=== PATIENT | male | born 1990 | race Caucasian/White ===

== ENCOUNTER 2020-07-21 22:09 | Emergency (ER) | payer SELFPAY ==
[~2020-07-21] VITALS: Ht 165.1 cm; Wt 84.0 kg
[2020-07-21] MEDS ORDERED: KETOROLAC 30MG/ML VIAL IV STA (23:05)
[2020-07-21] MEDS ORDERED: SODIUM CHLORIDE 0.9% 1,000 ML IV ONE (23:15)
[2020-07-21 23:28] LABS: CHLORIDE 106 mEq/L (98-107)
[2020-07-21 23:29] LABS: BASOPHILS % 0.3 % (0.0-2.0); EOSINOPHILS % 1.7 % (0.0-5.0); HEMATOCRIT. 44.6 % (42.0-52.0); HEMOGLOBIN. 14.9 g/dL (14.0-18.0); LYMPHOCYTES % 41.4 % (20.0-50.0); MEAN CORPUSCULAR HEMOGLOBIN 29.3 pg (28.0-32.0); MEAN CORPUSCULAR VOLUME 87.6 fL (80.0-94.0); MEAN PLATELET VOLUME 7.4 fl (7.4-10.4); MONOCYTES % 9.1 % (2.0-8.0); NEUTROPHILS % 47.5 % (40.0-76.0); PLATELET 290 x1000/uL (130-400); RED BLOOD CELL COUNT 5.09 mill/uL (4.7-6.1); RED CELL DISTRIBUTION WIDTH 12.9 % (11.6-14.6)
[2020-07-22 04:25] VITALS: BP 118/69
== END 2020-07-22 04:29 | disposition home or self-care (01) ==
LOC: ER 22:09
DX: R07.89 Other chest pain (principal); F17.210 Nicotine dependence, cigarettes, uncomplicated
CPT/HCPCS: 36415; 71045; 80053; 83880; 84484; 85025; 93005; 96361; 96374; 99285; J1885; J7030

== ENCOUNTER 2020-08-04 15:30 | Emergency (ER) | payer MEDICAID ==
[~2020-08-04] VITALS: Ht 165.1 cm; Wt 82.0 kg
[2020-08-04] MEDS ORDERED: ONDANSETRON HCL 4MG/2ML INJ IV STA (15:56)
[2020-08-04] MEDS ORDERED: SODIUM CHLORIDE 0.9% 1,000 ML IV ONE ×2 (16:00→16:15)
[2020-08-04] MEDS ORDERED: KETOROLAC 30MG/ML VIAL IV STA (16:01)
[2020-08-04 16:09] VITALS: BP 97/65
[2020-08-04 16:15] LABS: BASOPHILS % 0.4 % (0.0-2.0); EOSINOPHILS % 3.2 % (0.0-5.0); HEMATOCRIT. 40.5 % (42.0-52.0); HEMOGLOBIN. 14.2 g/dL (14.0-18.0); LYMPHOCYTES % 27.1 % (20.0-50.0); MEAN CORPUSCULAR HEMOGLOBIN 30.1 pg (28.0-32.0); MEAN CORPUSCULAR VOLUME 85.9 fL (80.0-94.0); MEAN PLATELET VOLUME 7.3 fl (7.4-10.4); MONOCYTES % 5.1 % (2.0-8.0); NEUTROPHILS % 64.2 % (40.0-76.0); PLATELET 292 x1000/uL (130-400); RED BLOOD CELL COUNT 4.72 mill/uL (4.7-6.1); RED CELL DISTRIBUTION WIDTH 12.8 % (11.6-14.6)
[2020-08-04 16:21] LABS: CHLORIDE 106 mEq/L (98-107)
[2020-08-04 16:25] LABS: ETHANOL BLOOD < 10 mg/dL; PROTHROMBIN TIME 11.2 sec (9.6-11.0)
[2020-08-04 17:24] LABS: CLARITY URINE CLEAR (CLEAR); COLOR URINE YELLOW (YELLOW); KETONES URINE NEGATIVE (NEGATIVE); LEUKOCYTE ESTERASE URINE NEGATIVE (NEGATIVE); NITRITE URINE NEGATIVE (NEGATIVE); OCCULT BLOOD URINE NEGATIVE (NEGATIVE); PH URINE 7.5 (4.5-8.0); PROTEIN URINE NEGATIVE (NEGATIVE); SPECIFIC GRAVITY URINE 1.009 (1.005-1.030)
[2020-08-04 17:39] LABS: *BENZODIAZEPINES SCREEN URINE NEGATIVE (NEGATIVE); *COCAINE SCREEN URINE NEGATIVE (NEGATIVE); METHADONE URINE SCREEN NEGATIVE (NEGATIVE)
[2020-08-04 17:40] LABS: *AMPHETAMINES SCREEN URINE NEGATIVE (NEGATIVE); *BARBITURATES SCREEN URINE NEGATIVE (NEGATIVE); CANNABINOID URINE SCREEN NEGATIVE (NEGATIVE); OPIATES URINE SCREEN NEGATIVE (NEGATIVE); PHENCYCLIDINE URINE SCREEN NEGATIVE (NEGATIVE)
[2020-08-04] MEDS ORDERED: ONDA4TAB5 MT (18:24)
[2020-08-04] MEDS ORDERED: POLY17PO3 MT (18:24)
[2020-08-04] MEDS ORDERED: OMEP20CA14 MT (18:24)
== END 2020-08-04 18:39 | disposition home or self-care (01) ==
LOC: ER 15:30
DX: R10.13 Epigastric pain (principal); R11.0 Nausea; K59.00 Constipation, unspecified; K82.8 Other specified diseases of gallbladder; K76.0 Fatty (change of) liver, not elsewhere classified; F17.210 Nicotine dependence, cigarettes, uncomplicated; Z71.6 Tobacco abuse counseling
CPT/HCPCS: 36415; 76705; 80053; 80305; 80320; 81003; 83690; 85025; 85610; 96361; 96374; 96375; 99285; 99406; J1885; J2405; J7030; G0480

== ENCOUNTER 2021-01-20 16:45 | Inpatient (IN) | payer MEDICAID ==
[~2021-01-20] VITALS: Ht 165.1 cm; Wt 86.6 kg
[~2021-01-20 16:45] MED LIST: OMEP20CA14 MT; ONDA4TAB5 MT; POLY17PO3 MT
[2021-01-20] MEDS ORDERED: NITROGLYCERIN 0.4MG TABLET SL SL ONE (18:00)
[2021-01-20] MEDS ORDERED: ASPIRIN 325MG EC TABLET PO ONE (18:00)
[2021-01-20 18:55] LABS: BASOPHILS % 0.5 % (0.0-2.0); HEMATOCRIT. 42.4 % (42.0-52.0); HEMOGLOBIN. 14.8 g/dL (14.0-18.0); MEAN CORPUSCULAR HEMOGLOBIN 30.1 pg (28.0-32.0); MEAN CORPUSCULAR VOLUME 86.5 fL (80.0-94.0); MEAN PLATELET VOLUME 7.2 fl (7.4-10.4); MONOCYTES % 7.5 % (2.0-8.0); PLATELET 286 x1000/uL (130-400); RED CELL DISTRIBUTION WIDTH 12.8 % (11.6-14.6)
[2021-01-20 19:00] LABS: CHLORIDE 104 mEq/L (98-107)
[2021-01-20] MEDS ORDERED: MAGNESIUM/ALUMINUM HYDROXIDE/SIMETHICONE 30ML UDC PO PRN (23:00)
[2021-01-20] MEDS ORDERED: IPRATROPIUM/ALBUTEROL 0.5-3(2.5)MG/3ML NEB NEB PRN (23:00)
[2021-01-20] MEDS ORDERED: ZOLPIDEM TARTRATE 5MG TABLET PO PRN (23:00)
[2021-01-20] MEDS ORDERED: NA PHOS,M-B/NA PHOS,DI-BA ENEMA 118ML PR PRN (23:00)
[2021-01-20] MEDS ORDERED: CLONIDINE 0.1MG TABLET PO PRN (23:00)
[2021-01-20] MEDS ORDERED: DOCUSATE SODIUM 100MG CAPSULE PO PRN (23:00)
[2021-01-20] MEDS ORDERED: KETOROLAC 15MG/ML VIAL IV PRN (23:00)
[2021-01-20] MEDS ORDERED: GUAIFENESIN 200MG/10ML SUGAR FREE UDC PO PRN (23:00)
[2021-01-20] MEDS ORDERED: ACETAMINOPHEN 325MG TABLET PO PRN ×2 (23:00)
[2021-01-20] MEDS ORDERED: ONDANSETRON HCL 4MG/2ML INJ IV PRN (23:00)
[2021-01-20] MEDS ORDERED: NITROGLYCERIN 0.4MG TABLET SL SL PRN (23:00)
[2021-01-21 00:15] LABS: ETHANOL BLOOD < 10 mg/dL
[2021-01-21 00:18] LABS: LDL CHOLESTEROL 139 mg/dL (5-100)
[2021-01-21 00:20] LABS: HDL CHOLESTEROL 27 mg/dL (40-59)
[2021-01-21 05:08] LABS: BASOPHILS % 0.4 % (0.0-2.0); EOSINOPHILS % 1.9 % (0.0-5.0); HEMATOCRIT. 43.7 % (42.0-52.0); HEMOGLOBIN. 14.7 g/dL (14.0-18.0); LYMPHOCYTES % 41.5 % (20.0-50.0); MEAN CORPUSCULAR HEMOGLOBIN 29.4 pg (28.0-32.0); MEAN CORPUSCULAR VOLUME 87.1 fL (80.0-94.0); MEAN PLATELET VOLUME 7.3 fl (7.4-10.4); MONOCYTES % 6.6 % (2.0-8.0); NEUTROPHILS % 49.6 % (40.0-76.0); PLATELET 286 x1000/uL (130-400); RED BLOOD CELL COUNT 5.01 mill/uL (4.7-6.1); RED CELL DISTRIBUTION WIDTH 12.9 % (11.6-14.6)
[2021-01-21 05:15] LABS: CHLORIDE 107 mEq/L (98-107)
[2021-01-21 05:21] LABS: PHOSPHORUS 4.2 mg/dL (2.5-4.9)
[2021-01-21 05:24] LABS: CREATINE KINASE 103 IU/L (39-308)
[2021-01-21 05:26] LABS: CREATINE KINASE MB FRACTION < 1.0 ng/mL (0.5-3.6)
[2021-01-21 08:00] VITALS: BP 137/80
[2021-01-21 09:00] VITALS: BP 137/80
[2021-01-21] MEDS ORDERED: FAMOTIDINE 20MG TABLET PO SCH (09:00)
[2021-01-21] MEDS ORDERED: ASPIRIN 81MG EC TABLET PO SCH (09:00)
[2021-01-21] MEDS ORDERED: ASPIRIN 325MG EC TABLET PO SCH (09:00)
[2021-01-21] MEDS ORDERED: METOPROLOL TARTRATE 25MG TABLET PO SCH (09:00)
[2021-01-21] MEDS ORDERED: ENOXAPARIN 40MG/0.4ML SYR SUBCUT SCH (09:00)
[2021-01-21] MEDS ORDERED: ATROPINE SULFATE 1MG/10ML SYR IV PRN (09:30)
[2021-01-21] MEDS ORDERED: ACETAMINOPHEN 325MG TABLET PO PRN (09:30)
[2021-01-21] MEDS: SUCRALFATE 1 G/10 ML UDC PO SCH ×2 (09:59→12:40)
[2021-01-21 12:00] VITALS: BP 107/70
[2021-01-21] MEDS ORDERED: INFLUENZA VACCINE 05/PF 0.5 ML SYRINGE IM ONE (13:30)
[2021-01-21 16:22] LABS: CREATINE KINASE 112 IU/L (39-308)
[2021-01-21 16:24] LABS: CREATINE KINASE MB FRACTION < 1.0 ng/mL (0.5-3.6)
== END 2021-01-21 16:30 | disposition left against medical advice (07) | DRG 243 ==
LOC: ER 16:45 → MICUSO 18:35 → EDBEDREQTM 18:37 → EDBEDREQ 18:37 → 8WST 01-21 07:20
PROVIDERS: ADMIT Internal Medicine; ATTEND Internal Medicine
DX: K21.9 Gastro-esophageal reflux disease without esophagitis (principal); E66.9 Obesity, unspecified; E78.5 Hyperlipidemia, unspecified; Z20.822 Contact with and (suspected) exposure to COVID-19; F17.210 Nicotine dependence, cigarettes, uncomplicated; Z68.31 Body mass index [BMI] 31.0-31.9, adult
CPT/HCPCS: 36415; 71045; 80053; 80061; 80320; 82550; 82553; 83036; 83735; 83880; 84100; 84484; 85025; 87426; 90686; 93005; 93306; 99285; J1650; G0480

== ENCOUNTER 2021-01-25 17:12 | Emergency (ER) | payer MEDICAID ==
[~2021-01-25] VITALS: Ht 167.6 cm; Wt 88.1 kg
[2021-01-25] MEDS ORDERED: KETOROLAC 15MG/ML VIAL IV ONE (18:45)
[2021-01-25] MEDS ORDERED: ACETAMINOPHEN 325MG TABLET PO ONE (18:45)
[2021-01-25 18:52] LABS: CHLORIDE 105 mEq/L (98-107)
[2021-01-25 18:59] LABS: BASOPHILS % 0.5 % (0.0-2.0); EOSINOPHILS % 2.3 % (0.0-5.0); HEMATOCRIT. 43.1 % (42.0-52.0); HEMOGLOBIN. 14.8 g/dL (14.0-18.0); LYMPHOCYTES % 39.2 % (20.0-50.0); MEAN CORPUSCULAR HEMOGLOBIN 29.8 pg (28.0-32.0); MEAN CORPUSCULAR VOLUME 86.8 fL (80.0-94.0); MEAN PLATELET VOLUME 7.2 fl (7.4-10.4); MONOCYTES % 9.5 % (2.0-8.0); NEUTROPHILS % 48.5 % (40.0-76.0); PLATELET 296 x1000/uL (130-400); RED BLOOD CELL COUNT 4.97 mill/uL (4.7-6.1); RED CELL DISTRIBUTION WIDTH 12.8 % (11.6-14.6)
[2021-01-25 19:23] VITALS: BP 112/66
== END 2021-01-25 19:23 | disposition home or self-care (01) ==
LOC: ER 17:12
DX: R07.89 Other chest pain (principal)
CPT/HCPCS: 36415; 71045; 80053; 84484; 85025; 93005; 96374; 99285; J1885

== ENCOUNTER 2021-01-27 11:05 | Inpatient (IN) | payer MEDICAID, OTHER ==
[~2021-01-27] VITALS: Ht 165.1 cm; Wt 86.2 kg
[2021-01-27] MEDS ORDERED: ASPIRIN 81MG TABLET PO ONE (11:30)
[2021-01-27] MEDS ORDERED: NITROGLYCERIN OINT 1GM/INCH UDPKT TD ONE (11:30)
[2021-01-27 12:14] LABS: BASOPHILS % 0.5 % (0.0-2.0); HEMATOCRIT. 40.6 % (42.0-52.0); HEMOGLOBIN. 14.4 g/dL (14.0-18.0); LYMPHOCYTES % 43.3 % (20.0-50.0); MEAN CORPUSCULAR HEMOGLOBIN 30.3 pg (28.0-32.0); MEAN CORPUSCULAR VOLUME 85.7 fL (80.0-94.0); MEAN PLATELET VOLUME 7.3 fl (7.4-10.4); MONOCYTES % 6.8 % (2.0-8.0); NEUTROPHILS % 47.4 % (40.0-76.0); PLATELET 263 x1000/uL (130-400); RED BLOOD CELL COUNT 4.74 mill/uL (4.7-6.1); RED CELL DISTRIBUTION WIDTH 12.9 % (11.6-14.6)
[2021-01-27 12:20] LABS: CHLORIDE 106 mEq/L (98-107)
[2021-01-27 12:23] LABS: PROTHROMBIN TIME 10.6 sec (9.6-11.0)
[2021-01-27] MEDS ORDERED: MAGNESIUM/ALUMINUM HYDROXIDE/SIMETHICONE 30ML UDC PO PRN (16:30)
[2021-01-27] MEDS ORDERED: HYDROCODONE/ACETAMINOPHEN 5/325MG TABLET PO PRN (16:30)
[2021-01-27] MEDS ORDERED: NALOXONE HCL 0.4MG/ML VIAL IV PRN (16:30)
[2021-01-27] MEDS ORDERED: ACETAMINOPHEN 325MG TABLET PO PRN (16:30)
[2021-01-27] MEDS ORDERED: ONDANSETRON HCL 4MG/2ML INJ IV PRN (16:30)
[2021-01-27] MEDS ORDERED: CLONIDINE 0.1MG TABLET PO PRN (16:30)
[2021-01-27 16:44] VITALS: BP 115/76
[2021-01-27 16:45] VITALS: BP 115/76
[2021-01-27] MEDS: METOPROLOL TARTRATE 25MG TABLET PO SCH ×2 (17:21→21:00)
[2021-01-27 19:58] VITALS: BP 104/61
[2021-01-27] MEDS: ATORVASTATIN CALCIUM 40MG TABLET PO SCH (21:09)
[2021-01-28] VITALS: BP 110/65
[2021-01-28 04:00] VITALS: BP 102/63
[2021-01-28] MEDS: ASPIRIN 81MG EC TABLET PO SCH (08:03)
[2021-01-28] MEDS: METOPROLOL TARTRATE 25MG TABLET PO SCH ×2 (08:04→20:28)
[2021-01-28] MEDS ORDERED: MIDAZOLAM HCL 2 MG/2 ML VIAL ONE (08:07)
[2021-01-28] MEDS ORDERED: FENTANYL CITRATE/PF 50MCG/ML 2ML VIAL ONE (08:07)
[2021-01-28] MEDS ORDERED: LIDOCAINE HCL 1% 20ML VIAL (Pyxis) INJ ONE (08:08)
[2021-01-28] MEDS ORDERED: VERAPAMIL HCL 2.5 MG/1 ML 2ML VIAL IV ONE (08:08)
[2021-01-28] MEDS ORDERED: HEPARIN 1000 UNITS/ML 10ML ONE (08:08)
[2021-01-28] MEDS ORDERED: IODIXANOL 320MG/ML 100 ML BOTTLE IV ONE (08:09)
[2021-01-28] MEDS ORDERED: ASPIRIN 81MG EC TABLET PO SCH (09:00)
[2021-01-28] MEDS ORDERED: ACETAMINOPHEN 325MG TABLET PO PRN (09:15)
[2021-01-28] MEDS ORDERED: ATROPINE SULFATE 1MG/10ML SYR IV PRN (09:15)
[2021-01-28] MEDS: ISOSORBIDE MONONITRATE 30MG TABLET SR 24HR PO SCH (09:15)
[2021-01-28] MEDS: SODIUM CHLORIDE 0.45% 1,000 ML IV SCH (18:53)
[2021-01-28 20:00] VITALS: BP 118/77
[2021-01-28 20:10] LABS: BASOPHILS % 0.5 % (0.0-2.0); EOSINOPHILS % 1.4 % (0.0-5.0); HEMATOCRIT. 42.8 % (42.0-52.0); HEMOGLOBIN. 14.4 g/dL (14.0-18.0); LYMPHOCYTES % 43.1 % (20.0-50.0); MEAN CORPUSCULAR HEMOGLOBIN 29.7 pg (28.0-32.0); MEAN CORPUSCULAR VOLUME 87.9 fL (80.0-94.0); MEAN PLATELET VOLUME 7.4 fl (7.4-10.4); MONOCYTES % 7.5 % (2.0-8.0); NEUTROPHILS % 47.5 % (40.0-76.0); PLATELET 278 x1000/uL (130-400); RED BLOOD CELL COUNT 4.87 mill/uL (4.7-6.1); RED CELL DISTRIBUTION WIDTH 12.7 % (11.6-14.6)
[2021-01-28 20:17] LABS: CHLORIDE 105 mEq/L (98-107)
[2021-01-28] MEDS: ATORVASTATIN CALCIUM 40MG TABLET PO SCH (20:28)
[2021-01-29] VITALS: BP 95/61
[2021-01-29] MEDS: SODIUM CHLORIDE 0.45% 1,000 ML IV SCH ×2 (03:21→08:37)
[2021-01-29 04:00] VITALS: BP 103/68
[2021-01-29 06:33] LABS: BASOPHILS % 0.4 % (0.0-2.0); HEMATOCRIT. 42.1 % (42.0-52.0); HEMOGLOBIN. 14.3 g/dL (14.0-18.0); LYMPHOCYTES % 48.1 % (20.0-50.0); MEAN CORPUSCULAR HEMOGLOBIN 29.9 pg (28.0-32.0); MEAN CORPUSCULAR VOLUME 88.1 fL (80.0-94.0); MEAN PLATELET VOLUME 7.6 fl (7.4-10.4); MONOCYTES % 7.2 % (2.0-8.0); NEUTROPHILS % 42.3 % (40.0-76.0); PLATELET 250 x1000/uL (130-400); RED BLOOD CELL COUNT 4.77 mill/uL (4.7-6.1); RED CELL DISTRIBUTION WIDTH 12.8 % (11.6-14.6)
[2021-01-29 06:38] LABS: CHLORIDE 105 mEq/L (98-107)
[2021-01-29 08:00] VITALS: BP 111/73
[2021-01-29] MEDS: ISOSORBIDE MONONITRATE 30MG TABLET SR 24HR PO SCH (08:35)
[2021-01-29] MEDS: ASPIRIN 81MG EC TABLET PO SCH (08:35)
[2021-01-29] MEDS: METOPROLOL TARTRATE 25MG TABLET PO SCH (08:36)
[2021-01-29 10:43] VITALS: BP 115/66
== END 2021-01-29 11:20 | disposition home or self-care (01) | DRG 191 ==
LOC: ER 11:05 → 7EST 12:48 → EDBEDREQ 12:57 → ENRESERV 16:28
PROVIDERS: ADMIT Hospitalist; ATTEND Hospitalist
PROC: B211YZZ Fluoroscopy of Multiple Coronary Arteries using Other Contrast (ICD-10-PCS; principal; 2021-01-28)
PROC: 4A023N7 Measurement of Cardiac Sampling and Pressure, Left Heart, Percutaneous Approach (ICD-10-PCS; 2021-01-28)
PROC: B34HZZZ Ultrasonography of Right Upper Extremity Arteries (ICD-10-PCS; 2021-01-28)
DX: I25.110 Atherosclerotic heart disease of native coronary artery with unstable angina pectoris (principal); E78.5 Hyperlipidemia, unspecified; Z20.822 Contact with and (suspected) exposure to COVID-19; F17.210 Nicotine dependence, cigarettes, uncomplicated; Z82.49 Family history of ischemic heart disease and other diseases of the circulatory system; Z79.899 Other long term (current) drug therapy; Z83.3 Family history of diabetes mellitus; Z71.6 Tobacco abuse counseling
CPT/HCPCS: 36415; 71045; 80048; 80053; 83880; 84484; 85025; 87426; 93005; 93458; 99285; C1769; C1887; C1893; J1644; J2250; J3010; J3490; Q9967

== ENCOUNTER 2021-06-19 07:14 | Emergency (ER) | payer MEDICAID ==
[~2021-06-19] VITALS: Ht 167.6 cm; Wt 82.0 kg
[2021-06-19] MEDS ORDERED: DICYCLOMINE 10 MG/5 ML ORAL SYR PO STA (08:00)
[2021-06-19] MEDS ORDERED: MAGNESIUM/ALUMINUM HYDROXIDE/SIMETHICONE 30ML UDC PO STA (08:00)
[2021-06-19 08:17] LABS: BASOPHILS % 0.3 % (0.0-2.0); EOSINOPHILS % 0.2 % (0.0-5.0); HEMATOCRIT. 44.2 % (42.0-52.0); HEMOGLOBIN. 15.1 g/dL (14.0-18.0); LYMPHOCYTES % 37.9 % (20.0-50.0); MEAN CORPUSCULAR HEMOGLOBIN 29.6 pg (28.0-32.0); MEAN CORPUSCULAR VOLUME 86.4 fL (80.0-94.0); MEAN PLATELET VOLUME 7.2 fl (7.4-10.4); NEUTROPHILS % 54.6 % (40.0-76.0); PLATELET 288 x1000/uL (130-400); RED BLOOD CELL COUNT 5.11 mill/uL (4.7-6.1); RED CELL DISTRIBUTION WIDTH 13.2 % (11.6-14.6)
[2021-06-19 08:19] LABS: CLARITY URINE CLOUDY (CLEAR); COLOR URINE YELLOW (YELLOW); KETONES URINE NEGATIVE (NEGATIVE); LEUKOCYTE ESTERASE URINE NEGATIVE (NEGATIVE); NITRITE URINE NEGATIVE (NEGATIVE); OCCULT BLOOD URINE TRACE (NEGATIVE); PROTEIN URINE 1+ (NEGATIVE); SPECIFIC GRAVITY URINE 1.022 (1.005-1.030); UROBILINOGEN URINE 0.2 E.U./dL (0.2-1.0)
[2021-06-19 08:25] LABS: CHLORIDE 109 mEq/L (98-107)
[2021-06-19] MEDS ORDERED: KETOROLAC 60MG/2ML VIAL IM ONE (09:30)
[2021-06-19] MEDS ORDERED: OMEP40CA20 MT (09:33)
[2021-06-19 09:41] VITALS: BP 110/76
== END 2021-06-19 09:43 | disposition home or self-care (01) ==
LOC: ER 07:14
DX: R10.13 Epigastric pain (principal); R11.2 Nausea with vomiting, unspecified; Z79.899 Other long term (current) drug therapy
CPT/HCPCS: 36415; 74018; 80053; 81003; 85025; 93005; 99285

== ENCOUNTER 2023-03-18 02:02 | Emergency (ER) | payer MEDICAID ==
[~2023-03-18] VITALS: Ht 167.6 cm; Wt 86.0 kg
[~2023-03-18 02:02] MED LIST changes: +OMEP40CA20 MT
[2023-03-18 02:03] VITALS: BP 131/90; PULSE 115; RESP 20; TEMP 98.4; O2SAT 96
[2023-03-18 02:39] LABS: BASOPHILS % 0.4 % (0.0-2.0); EOSINOPHILS % 1.2 % (0.0-5.0); HEMATOCRIT. 46.8 % (42.0-52.0); HEMOGLOBIN. 16.3 g/dL (14.0-18.0); LYMPHOCYTES % 44.4 % (20.0-50.0); MEAN CORPUSCULAR HGB CONC 34.8 g/dL (31.0-37.0); MEAN CORPUSCULAR VOLUME 86.1 fL (80.0-94.0); MEAN PLATELET VOLUME 6.7 fl (7.4-10.4); MONOCYTES % 6.5 % (2.0-8.0); NEUTROPHILS % 47.5 % (40.0-76.0); PLATELET 360 x1000/uL (130-400); RED BLOOD CELL COUNT 5.43 mill/uL (4.7-6.1); RED CELL DISTRIBUTION WIDTH 12.9 % (11.6-14.6); WHITE BLOOD COUNT 8.1 x1000/uL (4.5-11.0)
[2023-03-18 02:42] LABS: CLARITY URINE CLEAR (CLEAR); COLOR URINE YELLOW (YELLOW); GLUCOSE URINE NEGATIVE (NEGATIVE); KETONES URINE NEGATIVE (NEGATIVE); LEUKOCYTE ESTERASE URINE NEGATIVE (NEGATIVE); NITRITE URINE NEGATIVE (NEGATIVE); OCCULT BLOOD URINE NEGATIVE (NEGATIVE); PH URINE 5.5 (4.5-8.0); PROTEIN URINE NEGATIVE (NEGATIVE); SPECIFIC GRAVITY URINE 1.004 (1.005-1.030); UROBILINOGEN URINE 0.2 E.U./dL (0.2-1.0)
[2023-03-18 02:50] LABS: PROTHROMBIN TIME 10.4 sec (9.6-11.0)
[2023-03-18 03:33] LABS: ALANINE AMINOTRANSFERASE 25 IU/L (10-49); ALBUMIN 4.9 g/dL (3.2-4.8); ASPARTATE AMINOTRANSFERASE 26 IU/L (<34); BILIRUBIN TOTAL 0.5 mg/dL (0.1-1.0); CALCIUM 9.8 mg/dL (8.7-10.4); CARBON DIOXIDE 26 mEq/L (21-32); CHLORIDE 103 mEq/L (98-107); CREATININE 0.8 mg/dL (0.6-1.3); GLUCOSE 98 mg/dL (70-105); POTASSIUM 3.6 mEq/L (3.5-5.1); PROTEIN TOTAL 8.4 g/dL (6.0-8.3); SODIUM 141 mEq/L (136-145); UREA NITROGEN BLOOD 6 mg/dL (9-23)
[2023-03-18 03:49] LABS: TROPONIN I HIGH SENSITIVITY < 4 ng/L (3.0-53)
== END 2023-03-18 11:49 | disposition home or self-care (01) ==
LOC: ER 02:02
DX: R07.9 Chest pain, unspecified (principal)
CPT/HCPCS: 80053; 81003; 85025; 85610; 85730; 84484; 36415; 71045; 93005; 99285; Z7610